=== PATIENT | female | born 1960 | race African-American/Black ===

== ENCOUNTER 2018-10-29 18:00 | Emergency (ER) | payer OTHER ==
[2018-10-29 20:31] LABS: #Eosinphils 0.1 thou/uL (0.0-0.7); #Lymphocytes 2.1 thou/uL (1.20-3.40); #Monocytes 0.3 thou/uL (0.11-0.59); #Neutrophils 2.2 thou/uL (1.40-6.50); %Basophils 0.8 % (0.0-1.0); %Lymphocytes 44.5 % (21.0-51.0); %Monocytes 5.6 % (0.0-10.0); %Neutrophils 47.1 % (42.0-75.0); Hemoglobin 15.6 g/dL (12.0-16.0); Mean Corpuscular HGB CONC 31.7 g/dL (32.0-36.0); Mean Corpuscular Hemoglobin 28.8 pg (27.0-31.0); Mean Platelet Volume 8.1 fL (7.4-10.4); Platelet Count 160 thou/uL (130-400); RBC Distribution Width 12.3 % (11.5-14.5); Red Blood Cell (RBC) Count 5.41 mill/uL (4.20-5.40); White Blood Cell (WBC) Count 4.7 thou/uL (4.8-10.8)
--- NOTE | 2018-10-29 20:43 | RAD ---
LEFT SHOULDER THREE VIEWS: 10/29/18 INDICATION: Left shoulder pain. COMPARISON: None. 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 No acute fracture or subluxation is shey dent. POS: RADHA
[2018-10-29] MEDS ORDERED: Aspirin Chewable 81 MG TAB ONE (20:51)
--- NOTE | 2018-10-29 20:51 | RAD ---
CHEST ONE VIEW 10/29/18 INDICATION: Chest pain. COMPARISON: Prior exam dated 07/21/08. IMPRESSION: Lungs are clear. Heart size is normal. No acute osseous abnormality is evident. The examination does not appear appreciably changed from the comparison study. POS: JENNY
[2018-10-29 20:55] LABS: ALT (SGPT) 29 U/L (8-55); AST (SGOT) 29 U/L (5-34); Albumin 4.2 g/dL (3.5-5.0); Alkaline Phosphatase 74 U/L (40-150); Anion Gap 15 mmol/L (10-20); BUN (Urea Nitrogen) 21 mg/dL (9.8-20.1); Bilirubin, Total 0.6 mg/dL (0.2-1.2); Calc. Creatinine Clearance 0 mL/min (70-130); Carbon Dioxide 17 mmol/L (22-29); Chloride 112 mmol/L (98-107); Estimated GFR-MDRD 45; Globulin 4.4 g/dL (2.4-3.5); Glucose 99 mg/dL (70-105); Potassium 3.6 mmol/L (3.5-5.1); Protein, Total 8.6 g/dL (6.0-8.3); Sodium 140 mmol/L (136-145)
[2018-10-29] MEDS ORDERED: HYDROcodone/Acetaminophen 5/325 mg Tablet ONE (22:29)
--- NOTE | 2018-10-31 14:06 | EKG ---
Test Reason : Blood Pressure : / mmHG Vent. Rate : 047 BPM Atrial Rate : 047 BPM P-R Int : 156 ms QRS Dur : 082 ms QT Int : 462 ms P-R-T Axes : 045 056 019 degrees QTc Int : 408 ms Marked sinus bradycardia Abnormal ECG Confirmed by SHARYN ENCINAS M.D. ([id number]), editorial intern SELVIN NICE ([id number] on 10/31/2018 2:05:02 PM Referred By: Confirmed By:SHARYN ENCINAS M.D.
== END 2018-10-29 22:31 | disposition home or self-care (01) ==
LOC: ERS 18:00
DX: R07.89 Other chest pain (principal); M25.512 Pain in left shoulder; M19.90 Unspecified osteoarthritis, unspecified site; I10 Essential (primary) hypertension; F32.9 Major depressive disorder, single episode, unspecified; F17.210 Nicotine dependence, cigarettes, uncomplicated
CPT/HCPCS: 36415; 71045; 80053; 84484; 85025; 93005

== ENCOUNTER 2019-07-09 14:59 | Emergency (ER) | payer OTHER | END 2019-07-09 15:43 | disposition left against medical advice (07) | LOC: ERS 14:59 | DX: Z53.21 Procedure and treatment not carried out due to patient leaving prior to being seen by health care provider (principal) ==

== ENCOUNTER 2019-10-18 19:40 | Emergency (ER) | payer OTHER ==
[2019-10-18 21:02] LABS: Bacteria/HPF 3+ HPF (None Seen); Bilirubin Negative (Negative); Blood, Urine 3+ (Negative); Clarity Turbid (Clear); Glucose, Urine (Dipstick) Normal (Negative); Leukocyte 500 Leu/uL (Negative); Nitrite 2+ (Negative); Protein, Urine (Dipstick) 200 mg/dL (Neg-Trace); RBC/HPF Greater than 50 HPF (0-3); Renal Epithelial 0-3 HPF (None Seen); Squamous Epithelial 0-3 HPF (0-3); Urobilinogen Normal mg/dL (Less than 2); WBC/HPF Greater than 50 HPF (0-3)
[2019-10-18 21:20] LABS: Band 32 % (5-11); Hemoglobin 13.2 g/dL (12.0-16.0); Lymphocytes 7 % (21-51); MDiff Complete? YES; Mean Corpuscular HGB CONC 32.8 g/dL (32.0-36.0); Mean Corpuscular Hemoglobin 29.6 pg (27.0-31.0); Mean Corpuscular Volume 90.3 fL (78.0-98.0); Mean Platelet Volume 10.4 fL (7.4-10.4); Neutrophil 61 % (42-75); Platelet Count 59 thou/uL (130-400); Platelet Morphology Comment Appears Decreased; RBC Distribution Width 12.4 % (11.5-14.5); Red Blood Cell (RBC) Count 4.46 mill/uL (4.20-5.40); White Blood Cell (WBC) Count 9.2 thou/uL (4.8-10.8)
[2019-10-18 21:22] LABS: ALT (SGPT) 19 U/L (8-55); AST (SGOT) 21 U/L (5-34); Albumin 3.3 g/dL (3.5-5.0); Alkaline Phosphatase 58 U/L (40-110); Anion Gap 15 mmol/L (10-20); BUN (Urea Nitrogen) 34 mg/dL (9.8-20.1); Bilirubin, Total 1.1 mg/dL (0.2-1.2); Calc. Creatinine Clearance 0 mL/min (70-130); Calcium 8.7 mg/dL (7.8-10.44); Carbon Dioxide 17 mmol/L (22-29); Chloride 103 mmol/L (98-107); Estimated GFR-MDRD 26; Globulin 4.2 g/dL (2.4-3.5); Glucose 160 mg/dL (70-105); Lipase 7 U/L (8-78); Potassium 3.5 mmol/L (3.5-5.1); Protein, Total 7.5 g/dL (6.0-8.3); Sodium 131 mmol/L (136-145)
--- NOTE | 2019-10-18 22:08 | ULT ---
RIGHT UPPER QUADRANT ULTRASOUND CLINICAL HISTORY: Epigastric abdominal pain with nausea vomiting for 3 days. COMPARISON: CT the abdomen dated March 29, 2007 FINDINGS: Liver:There is increased echogenicity of the liver with enlargement of the liver. The liver measures 20 cm in its greatest longitudinal dimension. Intrahepatic bile ducts: No intrahepatic or extrahepatic biliary dilation.; Common bile duct: 3.1 mm. Gallbladder: There is layered sludge within the gallbladder. Hazel's sign:None Main portal vein:Patent with hepatopedal flow. Pancreas:Visualized pancreas appears normal. Right kidney: Right kidney measures 11.2 x 4.4 x 4.6 cm. No davide hydronephrosis is evident. There is slight prominence of the proximal right ureter which is nonspecific and may be related to mild stricturing. Additional findings: None. IMPRESSION: 1. Gallbladder sludge without sonographic evidence of acute cholecystitis. 2. Mild nonspecific prominence of the proximal right ureter without right-sided hydronephrosis. Nonco ntrast CT the abdomen and pelvis may be helpful for further characterization. 3. Fatty liver with mild hepatomegaly.
[2019-10-18] MEDS ORDERED: Ketorolac Tromethamine 30 MG/ML VIAL ONE (22:40)
[2019-10-18] MEDS ORDERED: Acetaminophen 325 MG TAB ONE (22:40)
== END 2019-10-18 23:07 | disposition home or self-care (01) ==
LOC: ERS 19:40
DX: N39.0 Urinary tract infection, site not specified (principal); M19.90 Unspecified osteoarthritis, unspecified site; E78.5 Hyperlipidemia, unspecified; E78.00 Pure hypercholesterolemia, unspecified; I10 Essential (primary) hypertension; J44.9 Chronic obstructive pulmonary disease, unspecified; F32.9 Major depressive disorder, single episode, unspecified; F17.210 Nicotine dependence, cigarettes, uncomplicated; Z79.899 Other long term (current) drug therapy
CPT/HCPCS: 36415; 76705; 80053; 81003; 81015; 83690; 85025; 96372; J1885

== ENCOUNTER 2023-07-20 09:59 | Emergency (ER) | payer OTHER ==
[2023-07-20] MEDS ORDERED: HYDROcodone/Acetaminophen 5/325 mg Tablet ONE (10:48)
== END 2023-07-20 10:53 | disposition home or self-care (01) ==
LOC: ERS 09:59
DX: S02.5XXA Fracture of tooth (traumatic), initial encounter for closed fracture (principal); J44.9 Chronic obstructive pulmonary disease, unspecified; I10 Essential (primary) hypertension; F17.210 Nicotine dependence, cigarettes, uncomplicated; X58.XXXA Exposure to other specified factors, initial encounter
CPT/HCPCS: 99282